=== PATIENT | male | born 1955 | race Caucasian/White ===

== ENCOUNTER → 2017-08-02 | Outpatient (CLI) | payer MEDICAID ==
[~2017-08-02] MED LIST: BACTRIM DS 8001 TAB PO; CIPRO 500MG TA500 MG PO; COMBIVENT INH14.7 GM IN; FLOMAX 0.4MG C0.4 MG PO; KLONOPIN 0.5MG0.5 MG NG; LORTAB 5/500 501 TAB PO; MEDROL 4MG. DOSE4 MG PO; METHADONE 10 MG10 MG PO; METHADONE 10MG10 MG PO; NAPROXEN500 MG PO; OMEPRAZOLE40 MG PO; SYMBICORT1 AER IH; ULTRAM 50 MG TA50 MG PO
[2017-08-02 09:30] LABS: AMPHETAMINES/METAMPHETAMINES NEGATIVE ng/mL (<1000)
[2017-08-06 09:38] LABS: Opiates Negative (Cutoff=100)
== END ==
LOC: LAB 09:04
PROVIDERS: Anesthesiology
DX: Z79.899 Other long term (current) drug therapy (principal)